=== PATIENT | female | born 1960 | race Caucasian/White ===

== ENCOUNTER 2021-02-04 20:28 | Emergency (ER) | payer BC, OTHER ==
--- NOTE | 2021-02-04 21:23 | EDM.PDOC ---
<Kun Iyer E - Last Filed: 02/04/21 21:44> ED HPI GENERAL MEDICAL PROBLEM - General Chief Complaint: Upper Extremity Injury/Pain Stated Complaint: FELL Time Seen by Provider: 02/04/21 21:23 Source of Information: Reports: Patient History Limitations: Reports: No Limitations - History of Present Illness INITIAL COMMENTS - FREE TEXT/NARRATIVE: HISTORY AND PHYSICAL: History of present illness: Patient is a 60-year-old female who presents to the emergency room with complaints of right shoulder pain. She states she tripped over the cat, landing on her right shoulder. She did not hit her head or have any loss of consciousness. Denies any other bodily injury or pain. Does not take any form of blood thinners. Patient denies any fever, chills, headache, change in vision, syncope or near syncope. Denies any chest pain, back pain, shortness of breath or cough. Denies any abdominal pain, nausea, vomiting, diarrhea, constipation or dysuria. Has not noted any blood in urine or stool. Patient has been eating and drinking appropriately. No recent travel or sick contacts. Review of systems: As per history of present illness and below otherwise all systems reviewed and negative. Past medical history: As per history of present illness and as reviewed below otherwise noncontributory. Surgical history: As per history of present illness and as reviewed below otherwise noncontributory. Social history: See social history for further information Family history: As per history of present illness and as reviewed below otherwise noncontribu tory. Physical exam: General: Well developed and well nourished. Alert and orientated x 3. Nontoxic in appearance and in no acute distress. Vital signs are stable and have been reviewed by me. Nursing notes were reviewed. HEENT: Nontender, no obvious injury, normocephalic, pupils equal and reactive bilaterally, negative for conjunctival pallor or scleral icterus, mucous membranes moist, TMs normal bilaterally, throat clear, neck supple, nontender, trachea midline. No drooling or trismus noted. No meningeal signs. No hot potato voice noted. Lungs: Clear to auscultation bilaterally. No wheezes, rales, or rhonchi. Chest nontender. Normal work of breathing, no accessory muscles used. Heart: S1S2, regular rate and rhythm without overt murmur, gallops, or rubs. No JVD. No peripheral edema Abdomen: Soft, nondistended, nontender. Normoactive bowel sounds. Negative for masses or costovertebral tenderness. Skin: Intact, warm, dry. No lesions or rashes noted. Hematologic: No petechiae or purpra. Mucosa appropriate color and normal nail bed color and refill. Extremities: Pain with any type of movement of the right shoulder, guarding. Strong radial pulse. Cap refill less than 2 seconds. Denies any humerus, elbow, forearm, wrist or hand pain. Positive CMS. Otherwise she moves all other extremities per self without difficulty or deficits. Negative for cords or calf pain. Neurovascular unremarkable. Neuro: Awake, alert, oriented. Cranial nerves II through XII unremarkable. Cerebellum unremarkable. Motor and sensory unremarkable throughout. Exam nonfocal. Psychiatric: Mood and affect are appropriate. Normal thought process. Answering questions appropriately. Please note that the patient was seen and evaluated during the 2019 SARS-CoV-2 novel coronavirus pandemic period. Community viral transmission is ongoing at time of this encounter and the emergency department is operating under pandemic response procedures. Medical Decision Making: Patient is a 60-year-old female who presents to the emergency room with complaints of right shoulder pain. Patient fell landing on her right shoulder causing increased pain with any type of movement. Head to toe exam reveals no other area of concern. X-ray shows dislocation. Diagnostics: X-ray, postreduction Therapeutics: IV morphine, Zofran, NS at 100 mL/h Definitive disposition and diagnosis as appropriate pending reevaluation and review of above. - Related Data Allergies Allergy/AdvReac Type Severity Reaction Status Date / Time seasonal Allergy Other Uncoded 02/04/21 21:51 Home Meds: Home Meds ALPRAZolam [Alprazolam] 0.5 mg PO 02/04/21 [History] Albuterol [Proventil HFA] 1 puff INH QID PRN 02/04/21 [History] Albuterol/Ipratropium [DuoNeb 3.0-0.5 MG/3 ML] 3 ml .XX 02/04/21 [History] Budesonide/Formoterol [Symbicort 160-4.5 MCG] 02/04/21 [History] Fluticasone Propionate [Flonase] 02/04/21 [History] Naproxen Sodium 220 mg PO 02/04/21 [History] Omeprazole 20 mg PO 02/04/21 [History] Triamcinolone Acetonide [Kenalog 0.1% Crm] 02/04/21 [History] Departure - Departure Disposition: Home, Self-Care 01 Clinical Impression: Shoulder dislocation - Discharge Information Instructions: Shoulder Dislocation Referrals: PCP,Not In Area [Primary Care Provider] - Forms: ED Department Discharge Additional Instructions: You were seen today for shoulder pain and found to have a shoulder dislocation. We were able to reduce the shoulder and put it back in its correct position. We placed in a sling that she should wear for the next few days. You start moving the shoulder in the next few days as well. Below are numbers to orthopedic doctors. 1 is in [facility] and one that is in [place]. These follow-up with anyone of these other available for your shoulder. If you have any other concerning signs or symptoms please feel free to return to the ED. You can take Tylenol Motrin for the pain we can try the tramadol we gave you the pain is really severe. The following information is given to patients seen in the emergency department who are being discharged to home. This information is to outline your options for follow-up care. We provide all patients seen in our emergency department with a follow-up referral. The need for follow-up, as well as the timing and circumstances, are variable depending upon the specifics of your emergency department visit. If you don't have a primary care physician on staff, we will provide you with a referral. We always advise you to contact your personal physician following an emergency department visit to inform them of the circumstance of the visit and for follow-up with them and/or the need for any referrals to a consulting specialist. The emergency department will also refer you to a specialist when appropriate. This referral assures that you have the opportunity for follow-up care with a specialist. All of these measure are taken in an effort to provide you with optimal care, which includes your follow-up. Under all circumstances we always encourage you to contact your private physician who remains a resource for coordinating your care. When calling for follow-up care, please make the office aware that this follow-up is from your recent emergency room visit. If for any reason you are refused follow-up, please contact the [facility] Emergency Department at and asked to speak to the emergency department charge nurse. Please follow up with your primary care physician. If you do not have a primary care physician, see below: [facility] - [facility]opedic [facility] Professional Building [address] [place] [address], [address] [place] [address] Orthopedic Surgery [place] [id number] [place] [address] [address], [address] <Alfonso Briseno - Last Filed: 02/05/21 01:37> ED HPI GENERAL MEDICAL PROBLEM right shoulder Pain Score (Numeric/FACES): 7 Review of Systems - Review of Systems Review Of Systems: See Below ED EXAM, GENERAL - Physical Exam Exam: See Below ED TRAUMA EXTREMITY PROCEDURES - Joint Reduction Right Shoulder Sedation: Conscious Sedation Pre-Procedure NV Status: Normal Post-Procedure NV Status: Normal Technique: Other Number of Attempts: 1 Post-Reduction Imaging: Completely Reduced Joint Reduction Complications: No Course - Vital Signs Last Recorded V/S: Last Vital Signs Temp 97.3 F 02/04/21 22:05 Pulse 84 02/04/21 23:22 Resp 18 02/04/21 22:05 BP 194/95 H 02/04/21 22:05 Pulse Ox 99 02/04/21 23:22 - Orders/Labs/Meds Orders: Active Orders 24 hr Category Date Time Status Sodium Chloride 0.9% [Normal Saline] 1,000 ml Med 02/04/21 21:43 Active IV STAT Medication Orders Sodium Chloride (Normal Saline) 1,000 mls @ 125 mls/hr IV STAT ONE Stop: 02/05/21 05:42 Last Admin: 02/04/21 21:58 Dose: 125 mls/hr Documented by: ANTHONY Meds: Medications Generic Name Dose Route Start Last Admin Trade Name Freq PRN Reason Stop Dose Admin Sodium Chloride 1,000 mls @ 125 mls/hr 02/04/21 21:43 02/04/21 21:58 Normal Saline IV 02/05/21 05:42 125 mls/hr STAT ONE Administration Discontinued Medications Generic Name Dose Route Start Last Admin Trade Name Freq PRN Reason Stop Dose Admin Fentanyl Confirm 02/04/21 23:43 Fentanyl 100 Mcg/2 Ml Sdv Administered 02/04/21 23:44 Dose 100 mcg .ROUTE .STK-MED ONE Lidocaine HCl Confirm 02/04/21 23:42 Lidocaine 1% 5 Ml Sdv Administered 02/04/21 23:43 Dose 5 ml .ROUTE .STK-MED ONE Morphine Sulfate 4 mg 02/04/21 21:42 02/04/21 21:58 Morphine 2 Mg/Ml Syringe IVPUSH 02/04/21 21:43 4 mg ONETIME ONE Administration Morphine Sulfate 4 mg 02/04/21 23:16 02/04/21 23:21 Morphine 4 Mg/Ml Vial IVPUSH 02/04/21 23:17 4 mg ONETIME ONE Administration Ondansetron HCl 4 mg 02/04/21 21:42 02/04/21 21:57 Ondansetron 4 Mg/2 Ml Sdv IVPUSH 02/04/21 21:43 4 mg ONETIME ONE Administration Propofol Confirm 02/04/21 23:43 Propofol 200 Mg/20 Ml Sdv Administered 02/04/21 23:44 Dose 400 mg .ROUTE .STK-MED ONE Departure - Departure Time of Disposition: 01:17 Condition: Good - Discharge Information *PRESCRIPTION DRUG MONITORING PROGRAM REVIEWED*: Not Applicable *COPY OF PRESCRIPTION DRUG MONITORING REPORT IN PATIENT ANN MARIE: Not Applicable Sepsis Event Note (ED) - Focused Exam Vital Signs: Vital Signs Temp Pulse Resp BP Pulse Ox 02/04/21 23:22 84 99 02/04/21 22:05 97.3 F 85 18 194/95 H 99
[2021-02-04] MEDS ORDERED: Morphine 2 MG/ML SYRINGE IVPUSH ONE (21:42)
[2021-02-04] MEDS ORDERED: Ondansetron 4 MG/2 ML SDV IVPUSH ONE (21:42)
[2021-02-04] MEDS ORDERED: Sodium Chloride 0.9% 1,000 ML IV ONE (21:43)
--- NOTE | 2021-02-04 22:17 | CR ---
INDICATION: Pain after fall. COMPARISON: None available. TECHNIQUE: The right shoulder was examined with AP internal and external rotation views for a total of two views. FINDINGS: There is anterior, inferior, and medial dislocation of the humeral head. There is no sign of a Hill-Sachs or Bankart fracture. The acromioclavicular joint is intact. The visualized chest is clear. IMPRESSION: Anterior and inferior dislocation of the humeral head with no sign of any associated fracture. Dictated by Raudel Fernando MD @ 02/04/2021 10:15:27 PM (Electronically Signed)
[2021-02-04] MEDS ORDERED: Morphine 4 MG/ML VIAL IVPUSH ONE (23:16)
--- NOTE | 2021-02-04 23:41 | PCM.PREANE ---
Preanesthetic Assessment - Anesthesia/Transfusion/Family Hx Anesthesia History: Prior Anesthesia Without Reaction Family History of Anesthesia Reaction: No Transfusion History: No Prior Transfusion(s) - Review of Systems General: No Symptoms Pulmonary: Other (Asthma, well controlled) Cardiovascular: No Symptoms Gastrointestinal: No Symptoms Neurological: No Symptoms Other: Reports: None - Physical Assessment NPO Status Date: 02/04/21 NPO Status Time: 16:00 Vital Signs: Last Vital Signs Temp 36.3 C 02/04/21 22:05 Pulse 84 02/04/21 23:22 Resp 18 02/04/21 22:05 BP 194/95 H 02/04/21 22:05 Pulse Ox 99 02/04/21 23:22 Height: 5 ft 4 in Weight: 117.934 kg ASA Class: 3E Mental Status: Alert & Oriented x3 Airway Class: Mallampati = 2 Dentition: Reports: Normal Dentition ROM/Head Extension: Full Lungs: Clear to Auscultation, Normal Respiratory Effort Cardiovascular: Regular Rate, Regular Rhythm - Allergies Allergies/Adverse Reactions: Allergies Allergy/AdvReac Type Severity Reaction Status Date / Time seasonal Allergy Other Uncoded 02/04/21 21:51 - Acknowledgements Anesthesia Type Planned: MAC Pt an Appropriate Candidate for the Planned Anesthesia: Yes Alternatives and Risks of Anesthesia Discussed w Pt/Guardian: Yes Pt/Guardian Understands and Agrees with Anesthesia Plan: Yes PreAnesthesia Questionnaire Respiratory History: Reports: Asthma - SUBSTANCE USE Tobacco Use Status *Q: Never Tobacco User Recreational Drug Use History: No - HOME MEDS Home Medications: Home Meds ALPRAZolam [Alprazolam] 0.5 mg PO 02/04/21 [History] Albuterol [Proventil HFA] 1 puff INH QID PRN 02/04/21 [History] Albuterol/Ipratropium [DuoNeb 3.0-0.5 MG/3 ML] 3 ml .XX 02/04/21 [History] Budesonide/Formoterol [Symbicort 160-4.5 MCG] 02/04/21 [History] Fluticasone Propionate [Flonase] 02/04/21 [History] Naproxen Sodium 220 mg PO 02/04/21 [History] Omeprazole 20 mg PO 02/04/21 [History] Triamcinolone Acetonide [Kenalog 0.1% Crm] 02/04/21 [History] - CURRENT (IN HOUSE) MEDS Current Meds: Current Medications Sodium Chloride (Normal Saline) 1,000 mls @ 125 mls/hr IV STAT ONE Stop: 02/05/21 05:42 Last Admin: 02/04/21 21:58 Dose: 125 mls/hr Documented by: Discontinued Medications Morphine Sulfate (Morphine 2 Mg/Ml Syringe) 4 mg IVPUSH ONETIME ONE Stop: 02/04/21 21:43 Last Admin: 02/04/21 21:58 Dose: 4 mg Documented by: Morphine Sulfate (Morphine 4 Mg/Ml Vial) 4 mg IVPUSH ONETIME ONE Stop: 02/04/21 23:17 Last Admin: 02/04/21 23:21 Dose: 4 mg Documented by: Ondansetron HCl (Ondansetron 4 Mg/2 Ml Sdv) 4 mg IVPUSH ONETIME ONE Stop: 02/04/21 21:43 Last Admin: 02/04/21 21:57 Dose: 4 mg Documented by:
[2021-02-04] MEDS ORDERED: fentaNYL 100 MCG/2 ML SDV ONE (23:43)
[2021-02-04] MEDS ORDERED: Propofol 200 MG/20 ML SDV ONE (23:43)
--- NOTE | 2021-02-05 00:41 | PCM.POSTAN ---
POST ANESTHESIA ASSESSMENT - MENTAL STATUS Mental Status: Alert, Oriented - VITAL SIGNS Vital Signs: Last Vital Signs Temp 36.3 C 02/04/21 22:05 Pulse 84 02/04/21 23:22 Resp 18 02/04/21 22:05 BP 194/95 H 02/04/21 22:05 Pulse Ox 99 02/04/21 23:22 - RESPIRATORY Respiratory Status: Respiratory Rate WNL, Airway Patent, O2 Saturation Stable - CARDIOVASCULAR CV Status: Pulse Rate WNL, Blood Pressure Stable - GASTROINTESTINAL GI Status: No Symptoms - POST OP HYDRATION Hydration Status: Adequate & Stable
--- NOTE | 2021-02-05 00:50 | PCM.SN.2 ---
- Free Text/Narrative Note: called at 2205 by ED to perform conscious sedation for shoulder dislocation. Patient last ate at 1600 so procedure planned for 0000. Arrived at ED at 2350 with supplies and medications for conscious sedation. Started at 0012 and finished procedure at 0016. patient received a total of 100 mcg fentanyl, 50mg lidocaine, 140 mg propofol. simple mask with 10L O2 and ETCO2 monitoring in place during procedure. Vital signs monitored throughout, starting blood pressure 179/96, hr 103, O2 99%, positive ETCO2. blood pressure at end of procedure 146/61, hr 106, O2 96, positive ETCO2. patient monitored by CHIEF MEDICAL PHYSICIST in ED following procedure. Report given to ED RN, patient with stable vital signs, talking and no need for supplemental oxygen. Time Documentation
--- NOTE | 2021-02-05 00:51 | PCM48HPAN ---
Post Anesthesia Note - EVALUATION WITHIN 48HRS OF ANESTHETIC Vital Signs in Normal Range: Yes Patient Participated in Evaluation: Yes Respiratory Function Stable: Yes Airway Patent: Yes Cardiovascular Function Stable: Yes Hydration Status Stable: Yes Pain Control Satisfactory: Yes Nausea and Vomiting Control Satisfactory: Yes Mental Status Recovered: Yes Vital Signs: Last Vital Signs Temp 36.3 C 02/04/21 22:05 Pulse 84 02/04/21 23:22 Resp 18 02/04/21 22:05 BP 194/95 H 02/04/21 22:05 Pulse Ox 99 02/04/21 23:22
--- NOTE | 2021-02-05 01:35 | CR ---
Indication: Post reduction Technique: Two views Comparison: Right shoulder 02/04/2021 Findings: Interval reduction of the right glenohumeral joint. No evidence of dislocation. No fracture fragments seen. Acromioclavicular joint unremarkable. Dictated by Yovanny Whitney MD @ 02/05/2021 1:34:15 AM (Electronically Signed)
== END 2021-02-05 01:52 | disposition home or self-care (01) ==
LOC: MW.ED 20:28
DX: S43.014A Anterior dislocation of right humerus, initial encounter (principal); S43.034A Inferior dislocation of right humerus, initial encounter; Z91.048 Other nonmedicinal substance allergy status; W01.0XXA Fall on same level from slipping, tripping and stumbling without subsequent striking against object, initial encounter
CPT/HCPCS: 23655; 73030; 96374; 96375; 96376; 99283; J2270; J2405; J2704; J3010; J7030